=== PATIENT | female | born 1985 | race Caucasian/White ===

== ENCOUNTER 2018-10-16 08:51 | Emergency (ER) | payer OTHER ==
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
--- NOTE | 2018-10-16 10:52 | CT ---
[id number] CT/CT Cervical Spine WO IV Exam: CT Cervical Spine WO IV Clinical Data: TRAUMA COMPARISON: NO PREVIOUS SIMILAR EXAM IS AVAILABLE FINDINGS: No fracture or subluxation is seen. There is a normal appearance of the C1-C2 articulation. The prevertebral soft tissues are unremarkable. IMPRESSION: NO FRACTURE OR SUBLUXATION. Hever Ceja MD 10/16/18 1051 Thank you for allowing us to participate in the care of your patient.
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
== END 2018-10-16 11:20 | disposition home or self-care (01) ==
LOC: VM.ED 08:51
DX: S01.01XA Laceration without foreign body of scalp, initial encounter (principal); S70.02XA Contusion of left hip, initial encounter; S40.212A Abrasion of left shoulder, initial encounter; F31.9 Bipolar disorder, unspecified; V89.2XXA Person injured in unspecified motor-vehicle accident, traffic, initial encounter; Z79.899 Other long term (current) drug therapy
CPT/HCPCS: 12001; 70450; 72125; 99284-25